=== PATIENT | female | born 2000 | race Caucasian/White ===

== ENCOUNTER 2024-03-26 18:50 | Emergency (ER) | payer OTHER ==
[~2024-03-26] VITALS: Ht 160 cm; Wt 72.7 kg
[2024-03-26 19:25] VITALS: BP 123/73; PULSE 82; RESP 18; TEMP 98.1; O2SAT 99
[2024-03-26] MEDS ORDERED: ALBU0.0912 IH (19:57)
[2024-03-26 20:04] VITALS: BP 123/73; PULSE 82; RESP 18; TEMP 98.1; O2SAT 99
[2024-03-26 20:04] LABS: FLU A ANTIGEN negative (NEGATIVE); FLU B ANTIGEN negative (NEGATIVE)
== END 2024-03-26 20:04 | disposition home or self-care (01) ==
LOC: MED 18:50
DX: O99.513 Diseases of the respiratory system complicating pregnancy, third trimester (principal); R05.9 Cough, unspecified; R06.02 Shortness of breath; Z20.822 Contact with and (suspected) exposure to COVID-19; Z79.899 Other long term (current) drug therapy
CPT/HCPCS: 99283

== ENCOUNTER 2024-04-15 13:20 | Emergency (ER) | payer OTHER ==
[~2024-04-15] VITALS: Ht 165.1 cm; Wt 61.2 kg
[~2024-04-15 13:20] MED LIST: ALBU0.0912 IH
[2024-04-15 13:23] VITALS: BP 120/63; PULSE 110; RESP 19; TEMP 98; O2SAT 98
[2024-04-15] MEDS: LIDOCAINE MPF 1% 10 MG/ML VIAL INJ ONE (14:13)
[2024-04-15] MEDS ORDERED: BACI-418 TP (15:23)
[2024-04-15] MEDS ORDERED: ACET-2619 PO (15:23)
[2024-04-15 15:35] VITALS: BP 121/62; PULSE 88; RESP 16; TEMP 98; O2SAT 98
== END 2024-04-15 15:35 | disposition home or self-care (01) ==
LOC: MED 13:20
DX: O9A.213 Injury, poisoning and certain other consequences of external causes complicating pregnancy, third trimester (principal); S61.214A Laceration without foreign body of right ring finger without damage to nail, initial encounter; S61.216A Laceration without foreign body of right little finger without damage to nail, initial encounter; Z3A.32 32 weeks gestation of pregnancy; Z79.899 Other long term (current) drug therapy; W26.0XXA Contact with knife, initial encounter; Y93.89 Activity, other specified; Y92.89 Other specified places as the place of occurrence of the external cause; Y99.8 Other external cause status
CPT/HCPCS: 12002; 90471; 90715; 99283; J2001

== ENCOUNTER 2024-04-17 11:33 | Emergency (ER) | payer OTHER ==
[~2024-04-17] VITALS: Ht 160 cm; Wt 70.3 kg
[~2024-04-17 11:33] MED LIST changes: +ACET-2619 PO; +BACI-418 TP
[2024-04-17 11:51] VITALS: BP 110/63; PULSE 82; RESP 16; TEMP 97.8; O2SAT 96
[2024-04-17 11:57] VITALS: O2SAT 96
== END 2024-04-17 12:41 | disposition home or self-care (01) ==
LOC: MED 11:33
DX: S61.214A Laceration without foreign body of right ring finger without damage to nail, initial encounter (principal); S65.516A Laceration of blood vessel of right little finger, initial encounter; Z48.00 Encounter for change or removal of nonsurgical wound dressing; Z79.899 Other long term (current) drug therapy; X58.XXXA Exposure to other specified factors, initial encounter; Y92.89 Other specified places as the place of occurrence of the external cause; Y93.89 Activity, other specified; Y99.8 Other external cause status
CPT/HCPCS: 99283

== ENCOUNTER 2024-04-25 17:13 | Emergency (ER) | payer OTHER ==
[~2024-04-25] VITALS: Ht 157.5 cm; Wt 72.6 kg
[2024-04-25 17:15] VITALS: BP 118/75; PULSE 86; RESP 16; TEMP 98.1; O2SAT 96
== END 2024-04-25 17:46 | disposition home or self-care (01) ==
LOC: MED 17:13
DX: S61.214D Laceration without foreign body of right ring finger without damage to nail, subsequent encounter (principal); S61.216D Laceration without foreign body of right little finger without damage to nail, subsequent encounter; Z48.02 Encounter for removal of sutures; Z79.899 Other long term (current) drug therapy; W26.0XXD Contact with knife, subsequent encounter
CPT/HCPCS: 99281